=== PATIENT | male | born 1990 | race Caucasian/White ===

== ENCOUNTER 2020-07-31 14:08 | Inpatient (IN) | payer BC ==
[~2020-07-31] VITALS: Ht 198.1 cm; Wt 197.5 kg
[2020-07-31 14:21] VITALS: BP 122/83
[2020-07-31 15:02] LABS: ABSOLUTE BASOPHILS 0.1 thou/uL (0.0-0.2); ABSOLUTE EOSINOPHILS 0.4 thou/uL (0.0-0.7); ABSOLUTE LYMPHOCYTES 2.8 thou/uL (0.8-5.3); ABSOLUTE NEUTROPHILS 9.3 thou/uL (1.6-8.1); BASOPHILS 0.6 %; EOSINOPHILS 3.3 %; HEMATOCRIT 38.7 % (42.0-52.0); LYMPHOCYTES 20.4 %; MCH 27.5 pg (26.0-34.0); MCHC 33.5 g/dL (28.0-37.0); MCV 82.2 fL (80.0-100.0); MONOCYTES 7.7 %; MPV 7.7 fl. (7.2-11.1); NUCLEATED RBCS 0 /100WBC; PLATELET COUNT* 498 thou/uL (150-400); WBC 13.7 thou/uL (4.0-11.0)
[2020-07-31 15:05] LABS: CALCIUM 8.6 mg/dL (8.5-10.1); CREATININE 1.1 mg/dL (0.6-1.3); POTASSIUM 4.2 mmol/L (3.5-5.1)
[2020-07-31 15:10] LABS: ALBUMIN 3.1 g/dL (3.4-5.0); TOTAL BILIRUBIN 0.4 mg/dL (<0.1-1.0); TOTAL PROTEIN 8.5 g/dL (6.4-8.2)
--- NOTE | 2020-07-31 16:03 | EKG ---
[place] [address] ELECTROCARDIOGRAM REPORT Name: ZACHARY FERRARA [id number] Admission: 07/31/20 Attend Phys: Discharge: Date of : 88 Date of Service: 07/31/20 1458 Report #: [id number] THIS REPORT FOR: //name// [facility] ED Test Date: 2020-07-31 Test Time: 14:58:39 Pat Name: ZACHARY FERRARA Department: Room: Gender: Correctional Counselor/Case Manager: : 1990 Requested By: Isauro Benavidez Order Number: [id number] MD: Chaitanya Acevedo Measurements Intervals [place] Rate: 98 P: 6 AL: 160 QRS: -3 QRSD: 108 T: 24 QT: 362 QTc: 463 Interpretive Statements Sinus rhythm No previous ECG available for comparison Electronically Signed On 07-31-2020 16:03:28 CDT by Chaitanya Acevedo [email or web address] <ELECTRONICALLY SIGNED> By: Chaitanya Acevedo MD, [facility] 07/31/20 1603 1458 1458 Chaitanya Acevedo MD, FACC /EPI
[2020-07-31 16:11] LABS: ESR (SEDRATE) 80 mm/hr (0-15)
[2020-07-31 16:54] LABS: URINE BILIRUBIN NEGATIVE (Negative); URINE BLOOD TRACE (Negative); URINE CLARITY CLEAR; URINE COLOR YELLOW; URINE GLUCOSE-RANDOM NEGATIVE (Negative); URINE KETONES NEGATIVE (Negative); URINE LEUKOCYTES-REFLEX NEGATIVE (Negative); URINE NITRITE-REFLEX NEGATIVE (Negative); URINE PROTEIN NEGATIVE (Negative); URINE SPECIFIC GRAVITY >= 1.030 (1.005-1.030); URINE UROBILINOGEN 0.2 E.U./dl (0.2-1.0)
[2020-07-31 17:01] LABS: AMP/METHAMP Negative (Negative); BARBITURATES Negative (Negative); BENZODIAZEPINES Negative (Negative); COCAINE Negative (Negative); METHADONE Negative (Negative); OPIATES Negative (Negative); PCP Negative (Negative); THC Negative (Negative)
[2020-07-31 19:33] VITALS: BP 128/54
[2020-08-01 00:52] VITALS: BP 121/76
[2020-08-01 04:27] VITALS: BP 139/83
[2020-08-01 08:00] VITALS: BP 138/87
[2020-08-01 13:51] VITALS: BP 137/85
[2020-08-01] MEDS ORDERED: AUGMENTIN 875-1 EACH PO (15:42)
== END 2020-08-01 15:15 | disposition left against medical advice (07) | DRG 872 ==
LOC: M.ERS 14:08 → M.TBA-ER 17:42 → M.2W 19:39
PROVIDERS: Physician Assistant; ADMIT Internal Medicine; ATTEND Internal Medicine
DX: A41.9 Sepsis, unspecified organism (principal); L03.116 Cellulitis of left lower limb; Z68.43 Body mass index [BMI] 50.0-59.9, adult; L02.416 Cutaneous abscess of left lower limb; E66.01 Morbid (severe) obesity due to excess calories; E86.0 Dehydration; R55 Syncope and collapse; F41.9 Anxiety disorder, unspecified; L40.9 Psoriasis, unspecified; R11.2 Nausea with vomiting, unspecified; Z53.29 Procedure and treatment not carried out because of patient's decision for other reasons; Z20.822 Contact with and (suspected) exposure to COVID-19